=== PATIENT | female | born 1990 | race Caucasian/White ===

== ENCOUNTER → 2016-11-14 | Outpatient (CLI) | payer MEDICAID ==
[~2016-11-14] MED LIST: APAP W/ CODEINE1 TAB PO; CEPHALEXIN500 M1 PO; CIPRO 250MG TA250 MG PO; FERROUS SULFAT325 M2 PO; FLEXERIL10 MG PO; HYDROCODONE/ACE1 TA5 PO; NAPROXEN SODIU500 MG PO; PHENERGAN25 M3 PO; PREDNISONE50 MG PO; PRENATAL PLUS1 TA1 PO; VICODIN 5/500 T1 TAB PO
[2016-11-14 14:16] LABS: BUN 8 mg/dL (7-18)
[2016-11-14 14:18] LABS: GFR (ESTIMATED) 85 ML/MIN (59-)
== END ==
LOC: LAB 13:16
PROVIDERS: Nurse Practitioner Family
DX: E55.9 Vitamin D deficiency, unspecified (principal); Z00.00 Encounter for general adult medical examination without abnormal findings